=== PATIENT | female | born 1970 | race Caucasian/White ===

== ENCOUNTER 2016-11-02 10:32 | Emergency (ER) | payer OTHER ==
[~2016-11-02 10:32] MED LIST: ALBUTEROL17 G1 IH; DILAUDID2 MG PO; DURAGESIC50 MCG TD; FLONASE16 G1 NS; IBUPROFEN800 MG PO; INDERAL LA120 MG PO; LEVAQUIN250 MG PO; MOTRIN800 MG PO; OXYCODONE30 MG PO; PERCOCET 10/1 TABLET PO; PROAIR HFA8.5 GM IH; REGLAN10 MG PO; SYMBICORT60 INHALAT IH; WELLBUTRIN XL150 MG PO
== END 2016-11-02 10:50 | disposition left against medical advice (07) ==
LOC: EME 10:32
DX: R00.2 Palpitations (principal); Z53.21 Procedure and treatment not carried out due to patient leaving prior to being seen by health care provider

== ENCOUNTER 2017-09-01 20:34 | Emergency (ER) | payer OTHER | END 2017-09-01 23:46 | disposition home or self-care (01) | LOC: TRA 20:34 | DX: S50.812A Abrasion of left forearm, initial encounter (principal); V49.9XXA Car occupant (driver) (passenger) injured in unspecified traffic accident, initial encounter; Y92.410 Unspecified street and highway as the place of occurrence of the external cause; J45.909 Unspecified asthma, uncomplicated; Z90.710 Acquired absence of both cervix and uterus; Z88.8 Allergy status to other drugs, medicaments and biological substances; Z91.09 Other allergy status, other than to drugs and biological substances | CPT/HCPCS: 71045; 72170; 99281; 99285; J3010 ==